=== PATIENT | male | born 1980 | race Caucasian/White ===

== ENCOUNTER 2020-06-19 10:55 | Emergency (ER) | payer OTHER ==
[~2020-06-19] VITALS: Ht 167.6 cm; Wt 67.3 kg
[2020-06-19] MEDS ORDERED: [UNRECOGNIZED DRUG - REMARK] PO (11:11)
[2020-06-19] MEDS ORDERED: IBUPROFEN 800 MG TABLET PO ONE (11:30)
[2020-06-19] MEDS ORDERED: OxyCODONE HCL/ACETAMINOPHEN 5-325 MG TABLET PO ONE (11:30)
[2020-06-19 11:32] LABS: COVID AG,FIA SOURCE NASOPHARYNGEAL
[2020-06-19 14:35] VITALS: BP 119/81
== END 2020-06-19 16:44 | disposition home or self-care (01) ==
LOC: EMS 11:02
DX: S43.402A Unspecified sprain of left shoulder joint, initial encounter (principal); F32.9 Major depressive disorder, single episode, unspecified; F17.210 Nicotine dependence, cigarettes, uncomplicated; Z20.822 Contact with and (suspected) exposure to COVID-19; Y35.811A Legal intervention involving manhandling, law enforcement official injured, initial encounter; Y93.89 Activity, other specified; Y92.89 Other specified places as the place of occurrence of the external cause; Y99.8 Other external cause status
CPT/HCPCS: 87426; 99285; 73030-TC; Z7502; Z7610